=== PATIENT | male | born 1955 | race Two or more races ===

== ENCOUNTER 2022-04-03 15:34 | Emergency (ER) | payer OTHER ==
[~2022-04-03] VITALS: Ht 180.3 cm; Wt 99.8 kg
[~2022-04-03 15:34] MED LIST: AVALIDE 150-12.1 TA1 PO; LIPITOR20 MG PO
[2022-04-03] MEDS ORDERED: GLUMETZA500 MG (16:20)
[2022-04-03] MEDS ORDERED: ATACAND HCT 161 EACH (16:20)
== END 2022-04-03 17:08 | disposition home or self-care (01) ==
LOC: ER 15:34
DX: U07.1 COVID-19 (principal); J45.909 Unspecified asthma, uncomplicated; Z91.018 Allergy to other foods